=== PATIENT | male | born 1990 | race Caucasian/White ===

== ENCOUNTER 2021-09-12 11:13 | Emergency (ER) | payer BC, SELFPAY ==
--- NOTE | ~2021-09-12 | XR_ITS ---
XR chest 2V DATE: 09/12/2021 11:49 INDICATION: Cough for one week TECHNIQUE: 2 views COMPARISON: None FINDINGS: There is patchy left lower lobe infiltrate involving superior segment and posteromedial bas ilar area. No pleural effusion. No hilar or mediastinal enlargement. Normal heart size. No pulmonary vascular co ngestion or pneumothorax. IMPRESSION: Patchy left lower lobe infiltrate Reviewed, dictated and finalized at location A. [facility]
--- NOTE | 2021-09-12 11:31 | ED.URI ---
HPI - URI/Sore Throat General Chief Complaint: Upper Respiratory Infection Stated Complaint: cough,chest congestion Time Seen by Provider: 09/12/21 11:32 Source: patient and RN notes reviewed Mode of arrival: ambulatory Limitations: no limitations History of Present Illness HPI Narrative: 30-year-old male presents with concern for intermittent cough, fever. Reports symptoms started 8 days ago. Reports cough is keeping him up at night. Reports symptoms started with nasal congestion and rhinorrhea, however the congestion has now moved to his chest . He reports his had similar symptoms recently as well as his daughter. MD elicited complaint: cough Related Data Allergies Allergy/AdvReac Type Severity Reaction Status Date / Time No Known Allergies Allergy Verified 09/12/21 11:28 Review of Systems Review of Systems: CONSTITUTIONAL: Reports malaise, fever. EYES: Denies visual changes, redness, or discharge. ENT: Denies rhinorrhea, congestion, sinus pain, otalgia and sore throat. CARDIOVASCULAR: Denies chest pain, palpitations, or edema. RESPIRATORY: Reports persistent cough. Denies dyspnea. GASTROINTESTINAL: Denies abdominal pain, nausea, vomiting, diarrhea SKIN: Denies rash or itching. MUSCULOSKELETAL: Denies myalgia. NEUROLOGIC: Denies headache. All systems reviewed & are unremarkable except as noted in HPI and below PMFSH Comments At time of signature, agree with nursing past medical, surgical, social and family history. There is no relevant family history pertinent to the presenting complaint Exam Narrative: GENERAL: Well-appearing, well-nourished, and in no acute distress. HEAD: Normocephalic EYES: PERRLA, conjunctivae clear ENT: Nares clear. Mucous membranes moist. TM pearly gomez with sharp light reflex bilaterally; no tragal tenderness. Oropharynx not erythematous without lesions. Tonsils not enlarged and without exudate, no drooling, no hoarseness, no trismus, uvula midline. NECK: Supple. No lymphadenopathy CHEST: Clear to auscultation, right lower lobe diminished. No wheezing, rhonchi, rales, or stridor. No respiratory distress, speaks in full sentences. HEART: Regular rate and rhythm. No murmur heard. SKIN: Warm, dry, no rash. NEURO: Alert and oriented x3. PSYCH: Normal mood and affect Course Course Emergency Course: Patient is aware of diagnosis, understands and agrees to treatment plan. Anticipatory guidance given. Patient agrees to follow-up as directed and is aware of reasons to seek care at the emergency department. Portions of this record may have been created with voice recognition software Level of Care: Express Care Visit Vital Signs Vital signs: Reviewed. MDM - URI/Sore Throat MDM Narrative Medical decision making narrative: Differential diagnosis considered: Villarreal virus, strep pharyngitis, allergic rhinitis, upper respiratory tract infection, sinusitis, rhinosinusitis, nasopharyngitis. viral pharyngitis, otitis media, otitis externa, pneumonia, bronchitis, viral cough syndrome, viral syndrome, and influenza. Exam findings show no acute concerns or changes; patient is non-toxic appearing and is in no distress. Patient is appropriate for outpatient treatment and follow-up. Lab Data Attestation: I reviewed the patient's lab results. Imaging Data My impression: Images reviewed, interpreted by radiologist, agree, see report. Radiologist's impression: XR chest 2V DATE: 09/12/2021 11:49 INDICATION: Cough for one week TECHNIQUE: 2 views COMPARISON: None FINDINGS: There is patchy left lower lobe infiltrate involving superior segment and posteromedial basilar area. No pleural effusion. No hilar or mediastinal enlargement. Normal heart size. No pulmonary vascular congestion or pneumothorax. IMPRESSION: Patchy left lower lobe infiltrate Critical Care Time Critical Care Time Critical Care Time: No Discharge Plan Discharge Clinical Impression: Left lower lobe pneumonia Qualifiers: Pneu
[2021-09-12 11:33] VITALS: BP 161/88; PULSE 115; RESP 20; TEMP 37.7; O2SAT 100
== END 2021-09-12 12:08 | disposition home or self-care (01) ==
PROVIDERS: Emergency Provider Nurse Practitioner
DX: J18.1 Lobar pneumonia, unspecified organism (principal); Z20.822 Contact with and (suspected) exposure to COVID-19
CPT/HCPCS: 71046; 87426; 99203; C9803; G0463